=== PATIENT | female | born 1955 | race Caucasian/White ===

== ENCOUNTER 2021-08-10 09:55 | Outpatient (CLI) | payer MEDICARE | END 2021-08-10 09:56 | disposition home or self-care (01) | LOC: CSHMAMMO 09:55 | PROVIDERS: ATTEND Nurse Practitioner Adult Health | DX: Z13.820 Encounter for screening for osteoporosis (principal); Z78.0 Asymptomatic menopausal state | CPT/HCPCS: 77080 ==

== ENCOUNTER 2021-08-10 10:38 | Outpatient (CLI) | payer MEDICARE | END 2021-08-10 10:39 | disposition home or self-care (01) | LOC: CSHCT 10:38 | PROVIDERS: ATTEND Nurse Practitioner Adult Health | DX: Z12.2 Encounter for screening for malignant neoplasm of respiratory organs (principal); F17.200 Nicotine dependence, unspecified, uncomplicated; J84.9 Interstitial pulmonary disease, unspecified | CPT/HCPCS: 71271 ==

== ENCOUNTER 2022-12-12 10:03 | Outpatient (CLI) | payer MEDICARE | END 2022-12-12 10:04 | disposition home or self-care (01) | LOC: CSHCT 10:03 | PROVIDERS: ATTEND Internal Medicine | DX: Z12.2 Encounter for screening for malignant neoplasm of respiratory organs (principal); F17.210 Nicotine dependence, cigarettes, uncomplicated | CPT/HCPCS: 71271 ==